=== PATIENT | male | born 1980 | race American Indian/Alaskan Native ===

== ENCOUNTER 2017-07-02 11:16 | Emergency (ER) | payer SELFPAY ==
[2017-07-02 12:09] VITALS: BP 127/88
[2017-07-02] MEDS ORDERED: BICILLIN L-A IM ONE ×2 (12:32→12:54)
[2017-07-02] MEDS ORDERED: DECADRON IM ONE (12:32)
[2017-07-02] MEDS ORDERED: TORADOL IM ONE (12:32)
--- NOTE | 2017-07-02 12:37 | Emergency Department Report ---
ED ENT HPI - General Chief complaint: Sore Throat Stated complaint: THROAT SWOLLEN Time Seen by Provider: 07/02/17 12:27 Source: patient Mode of arrival: Ambulatory Limitations: No Limitations - History of Present Illness Initial comments: 36-year-old male withan past medical history retains her pain is oriented throat 1 month. Symptoms have worsened over the last several days. Intermittent sweats but no documented fever. Patient complains of pain with swallowing. No shortness of breath or inability to swallow secretions. Occasional cough reported. - Related Data Previous Rx's Medication Instructions Recorded Last Taken Type Ibuprofen [Motrin] 800 mg PO Q8HR PRN #30 tablet 07/02/17 Unknown Rx traMADol [Ultram 50 MG tab] 50 mg PO Q6HR PRN #20 tablet 07/02/17 Unknown Rx Allergies Allergy/AdvReac Type Severity Reaction Status Date / Time No Known Allergies Allergy Unverified 07/02/17 12:09 ED Dental HPI - General Chief complaint: Sore Throat Stated complaint: THROAT SWOLLEN Time Seen by Provider: 07/02/17 12:27 Source: patient Mode of arrival: Ambulatory Limitations: No Limitations - Related Data Previous Rx's Medication Instructions Recorded Last Taken Type Ibuprofen [Motrin] 800 mg PO Q8HR PRN #30 tablet 07/02/17 Unknown Rx traMADol [Ultram 50 MG tab] 50 mg PO Q6HR PRN #20 tablet 07/02/17 Unknown Rx Allergies Allergy/AdvReac Type Severity Reaction Status Date / Time No Known Allergies Allergy Unverified 07/02/17 12:09 ED Review of Systems ROS: Stated complaint: THROAT SWOLLEN Other details as noted in HPI Comment: All other systems reviewed and negative ED Past Medical Hx - Past Medical History Previous Medical History?: No - Surgical History Past Surgical History?: No - Social History Smoking Status: Current Every Day Smoker Substance Use Type: Marijuana - Medications Home Medications: Home Medications Medication Instructions Recorded Confirmed Last Taken Type Ibuprofen [Motrin] 800 mg PO Q8HR PRN #30 tablet 07/02/17 Unknown Rx traMADol [Ultram 50 MG tab] 50 mg PO Q6HR PRN #20 tablet 07/02/17 Unknown Rx ED Physical Exam - General Limitations: No Limitations - Other Other exam information: General: No limitations, patient is alert in no acute distress Head exam: Atraumatic, normocephalic Eyes exam: Normal appearance ENT: Moist mucous membrane, bilateral tonsillar edema with mild exudate, uvula midline Neck exam: Normal inspection, full range of motion, no meningismus nontender, right neck tender lymphadenopathy Respiratory exam: Clear to auscultation bilateral, no wheezes, rales, crackles Cardiovascular: Normal rate and rhythm, normal heart sounds Abdomen: Soft, nondistended, and nontender, with normal bowel sounds, no rebound, or guarding Extremity: Full range of motion normal inspection no deformity Back: Normal Inspection, full range of motion, no tenderness Neurologic: Alert, oriented x3, cranial nerves intact, no motor or sensory deficit Psychiatric: normal affect, normal mood Skin: Warm, dry, intact ED Course Vital Signs 07/02/17 12:04 Temperature 98.8 F Pulse Rate 103 H Respiratory 16 Rate Blood Pressure 127/88 O2 Sat by Pulse 98 Oximetry ED Medical Decision Making - Medical Decision Making Pharyngitis Strep sent and pending at this Patient empirically treated with Bicillin LA for strep Decadron and Toradol for swelling and pain Follow-up will be encouraged - Differential Diagnosis pharyngitis, strep, mono, viral Critical Care Time: No Critical care attestation.: If time is entered above; I have spent that time in minutes in the direct care of this critically ill patient, excluding procedure time. ED Disposition Clinical Impression: Pharyngitis Disposition: - TO HOME OR SELFCARE Is pt being admited?: No Does the pt Need Aspirin: No Condition: Stable Instructions: Pharyngitis (ED) Additional Instructions: You received an antibiotic shot for strep throat. This medication slowly releases the antibiotic in your bloodstream over time. Take the prescribed medication as needed for pain and fever. Follow up with your primary care doctor or clinic provided. Prescriptions: Ibuprofen [Motrin] 800 mg PO Q8HR PRN #30 tablet PRN Reason: Pain traMADol [Ultram 50 MG tab] 50 mg PO Q6HR PRN #20 tablet PRN Reason: Pain Referrals: [facility] [Provider Group] - 3-5 Days EVIE VILLA JR, MD [Staff Physician] - 3-5 Days Time of Disposition: 12:37
[2017-07-02] MEDS ORDERED: DECADRON ONE (12:53)
[2017-07-02] MEDS ORDERED: TORADOL ONE (12:53)
== END 2017-07-02 13:15 | disposition home or self-care (01) ==
LOC: ED 11:16
DX: J02.9 Acute pharyngitis, unspecified (principal); F17.200 Nicotine dependence, unspecified, uncomplicated; F12.10 Cannabis abuse, uncomplicated
CPT/HCPCS: 87116; 87430; 96372; 99283; J0561; J1100; J1885